=== PATIENT | male | born 1965 | race Caucasian/White ===

== ENCOUNTER 2023-04-04 20:49 | Emergency (ER) | payer OTHER, SELFPAY ==
[2023-04-04 20:56] VITALS: BP 135/75; PULSE 85; RESP 16; TEMP 36.9; O2SAT 99; BMI 21.5
[2023-04-04] MEDS: KETOROLAC 30 MG/ML VIAL IM (22:19)
[2023-04-04] MEDS: diazePAM 5 MG TABLET PO (22:19)
--- NOTE | 2023-04-04 22:37 | ED_ITS ---
HPI - Back Pain/Injury General Chief Complaint: Back Pain/Injury Stated Complaint: Back pain, left side, says pinched nerve Time Seen by Provider: 04/04/23 22:09 Source: patient and family History of Present Illness HPI Narrative: Patient is 57-year-old healthy male who has had previous back injuries presenting today with left-sided back pain and an obvious left thigh spasm. He reports that he has been working on the car lot over the last couple of days he noticed like a small ache thought he could get over it however today significant pain and spasming. He is previously had Valium and [place] which has helped. He is no changes in bowel or bladder habits no numbness tingling or weakness in his leg. Related Data Previous Rx's Medication Instructions Recorded diazepam 5 mg tablet (Valium) 5 mg PO Q12HR PRN muscle spasm #10 04/04/23 tabs hydrocodone 5 mg-acetaminophen 325 1 tab PO Q6H PRN pain #10 tabs 04/04/23 mg tablet Allergies Allergy/AdvReac Type Severity Reaction Status Date / Time amoxicillin Allergy Verified 04/04/23 21:09 Review of Systems Review of Systems ROS Unobtainable: All systems reviewed & are unremarkable except as noted in HPI and below Patient History Social History Smoking Status: Never smoker Smoking Status: Never smoker Substance Use Type: does not use Exam Initial Vital Signs Initial Vital Signs: Vital Signs Temperature 98.5 F 04/04/23 20:56 Pulse Rate 85 04/04/23 20:56 Respiratory Rate 16 04/04/23 20:56 Blood Pressure 135/75 04/04/23 20:56 Pulse Oximetry 99 04/04/23 20:56 Oxygen Delivery Method Room Air 04/04/23 20:56 GENERAL: Alert 57-year-old male appears uncomfortable CARDIOVASCULAR: peripheral pulses in tact, cap refill <2 sec RESPIRATORY: No respiratory distress, speaks in full sentences without difficulty BACK: No vertebral tenderness no step-offs left lower lumbar pain pinpoint tenderness to palpation EXTREMITIES: Normal range of motion, no clubbing or edema. Neurovascularly intact NEUROLOGICAL: Cranial nerves II through XII grossly intact. Normal gait and speech. SKIN: Warm, dry, no petechiae, no rashes or lesions. Course Orders Ordered: Discontinued Medications Hydrocodone Bitart/Acetaminophen (Hydrocodone/Acet 5/325 Prepack) 1 bottle MISC SEEINSTR ONE Stop: 04/04/23 22:47 Last Admin: 04/04/23 23:00 Dose: 1 bottle Documented By: POP Diazepam (Diazepam 5 Mg Tablet) 5 mg PO NOW ONE Stop: 04/04/23 22:10 Last Admin: 04/04/23 22:19 Dose: 5 mg Documented By: POP Ketorolac Tromethamine (Ketorolac 30 Mg/Ml Vial) 30 mg IM NOW ONE Stop: 04/04/23 22:10 Last Admin: 04/04/23 22:19 Dose: 30 mg Documented By: POP Vital Signs Vital signs: Vital Signs - 8 hr 04/04/23 20:56 04/04/23 23:09 Temperature 98.5 F Pulse Rate 85 89 Respiratory Rate 16 18 Blood Pressure 135/75 135/71 Pulse Oximetry 99 98 Oxygen Delivery Method Room Air Room Air MDM - Back Pain/Injury MDM Narrative Medical decision making narrative: Patient is a 57-year-old male history of back injury and pain presenting with an exacerbation after overuse. He received Toradol and Valium here in the ER minimal improvement after only 20 minutes. Will give him some [place] and Valium to go home with. He is no cauda equina, epidural hematoma or abscess, diskitis or other concerning symptoms. Discharge Plan Departure Patient Disposition: Home Clinical Impression: Strain of lumbar region Instructions: DI for Low Back Pain Activity Restrictions/Additional Instructions: *You have been diagnosed with acute on chronic back pain with muscle spasm *What to do: Increase activity as tolerated, no heavy lifting or strenuous activity *Continue to take medications as directed Motrin 600 mg every 6 hours if needed for [id number]-ht-[id number] pain [place] 1-2 tablets every 6 hours if needed for severe pain Valium 5 mg every 12 hours if needed for muscle spasm *Follow up with your primary care provider in 2-3 days or call [phone] *Return to ER if you should have increasing pain weakness change in bowel or bladder habits or any new, worsening or concerning symptoms Prescriptions: New hydrocodone-acetaminophen 5-325 mg tablet 1 tab PO Q6H PRN (Reason: pain) Qty: 10 0RF diazepam [Valium] 5 mg tablet 5 mg PO Q12HR PRN (Reason: muscle spasm) Qty: 10 0RF Stand Alone Forms: Patient Portal/API
[2023-04-04] MEDS: HYDROCODONE/ACET 5/325 PREPACK 1 BOTTLE MISC (23:00)
[2023-04-04 23:09] VITALS: BP 135/71; PULSE 89; RESP 18; O2SAT 98
== END 2023-04-04 23:09 | disposition home or self-care (01) ==
PROVIDERS: Emergency Provider Emergency Medicine
DX: S39.012A Strain of muscle, fascia and tendon of lower back, initial encounter (principal); X58.XXXA Exposure to other specified factors, initial encounter
CPT/HCPCS: 96372; 99283; J1885